=== PATIENT | female | born 1945 | race Hispanic/Latino ===

== ENCOUNTER 2017-06-30 13:39 | Emergency (ER) | payer OTHER ==
[~2017-06-30] VITALS: Ht 152.4 cm; Wt 60.3 kg
[2017-06-30] MEDS ORDERED: ASPIRIN 81 MG CHEW TAB PO ONE (14:15)
[2017-06-30 14:50] LABS: BASOPHILS % 0.4 % (0.0-1.0); EOSINOPHILS # (AUTO) 0.1 (0.0-0.4); EOSINOPHILS % 0.9 % (0.0-6.0); HEMATOCRIT 42.7 % (34.2-44.1); HEMOGLOBIN 14.2 g/dL (12.0-16.0); LYMPHOCYTES # (AUTO) 1.9 (1.0-3.2); LYMPHOCYTES % 34.1 % (18.0-39.1); MEAN CORPUSCULAR HGB CONC 33.3 g/dL (31-35); MEAN CORPUSCULAR VOLUME 90.3 fL (81-99); MONOCYTES # (AUTO) 0.2 (0.2-0.8); MONOCYTES % 3.7 % (4.4-11.3); NEUTROPHILS # (AUTO) 3.4 (2.1-6.9); NEUTROPHILS % 60.4 % (38.7-80.0); PLATELET COUNT 143 x10e3/uL (140-360); RED BLOOD COUNT 4.73 x10e6/uL (3.6-5.1); RED CELL DISTRIBUTION WIDTH 13.5 % (11.7-14.4)
[2017-06-30 14:55] LABS: INR 1.06; PARTIAL THROMBOPLASTIN TIME 23.4 seconds (23.8-35.5)
[2017-06-30 15:05] LABS: ALANINE AMINOTRANSFERASE 21 IU/L (0-55); ALBUMIN 4.1 g/dL (3.5-5.0); ALBUMIN/GLOBULIN RATIO 1.3 (0.8-2.0); ALKALINE PHOSPHATASE 95 IU/L (40-150); ANION GAP 13.7 mmol/L (8-16); BLOOD UREA NITROGEN 11 mg/dL (7-26); BUN/CREATININE RATIO 16 (6-25); CALCIUM 8.6 mg/dL (8.4-10.2); CARBON DIOXIDE 25 mmol/L (22-29); CHLORIDE 106 mmol/L (98-107); CREATINE KINASE 93 IU/L (29-168); CREATININE, SERUM 0.68 mg/dL (0.57-1.11); EST GLOMERULAR FILTRATION RATE > 60 ML/MIN (60-); GLUCOSE 118 mg/dL (74-118); MAGNESIUM 2.1 MG/DL (1.3-2.1); POTASSIUM 3.7 mmol/L (3.5-5.1); SODIUM 141 mmol/L (136-145)
--- NOTE | 2017-06-30 15:06 | Diagnostic Imaging Report ---
EXAM: XR CHEST 1 VIEW DATE: 06/30/2017 2:03 PM INDICATION: Dizziness COMPARISON: None FINDINGS: Lines and Tubes: None Heart and Mediastinum: No acute findings. Lungs and Pleura: No acute findings. Bones and Soft Tissues: No acute findings. IMPRESSION: 1. No acute cardiopulmonary findings. Signed by: Dr. Yaya Musa MD on 06/30/2017 3:02 PM
--- NOTE | 2017-06-30 15:25 | Diagnostic Imaging Report ---
Examination: CT BRAIN WITHOUT CONTRAST History: Light headed; dizziness; numbness. Comparison studies:None Technique: Axial images were obtained from the skull base to the vertex. Coronal and sagittal images reconstructed from the axial data. Intravenous contrast: None Findings: Scalp: No abnormalities. Bones: No fractures, blastic or lytic lesions. Brain sulci: Appropriate for age. Ventricles: Normal in size and configuration. No hydrocephalus. Extra-axial space: No abnormalities. Parenchyma: A 5mm calcification in the right caudate head the sequelae of prior infectious or inflammatory. No masses, hemorrhage, or acute or chronic cortical based vascular insults.. Sellar/suprasellar region: No abnormalities. Craniocervical junction: Patent foramen magnum. No Chiari one malformation. Incidental findings: None. Impression: No acute intracranial abnormalities. Signed by: Dr. Kalpana Kurtz M.D. on 06/30/2017 3:22 PM
== END 2017-06-30 20:41 | disposition home or self-care (01) ==
LOC: ER 13:39
DX: R42 Dizziness and giddiness (principal)
CPT/HCPCS: 36415; 70450; 71045; 80053; 82550; 82553; 83735; 83880; 84484; 85025; 85610; 85730; 93005; 99283

== ENCOUNTER 2019-09-24 05:00 | Emergency (ER) | payer OTHER ==
[~2019-09-24] VITALS: Ht 152.4 cm; Wt 58.1 kg
--- OUTSIDE RECORDS SUMMARY | 2019-09-24 05:03 | XMS REPORT ---
Author Author [facility] t Organization [facility] t Address [address] [place] [address] Phone Unavailable Care Team Providers Care Beater Room Supervisor Name Role Phone NONSTAFF PCP Unavailable Sakina DURANT Attphys Unavailable Payers Payer Name Policy Type Policy Number Effective Date Expiration Date Kyle Handy [id number] 2017 00:00:00 [facility] Problems This patient has no known problems. Allergies, Adverse Reactions, Alerts Allergy Name Allergy Type Status Severity Reaction(s) Onset Date Inacti ve Date Treating Clinician Comments Source PENICILLIN Allergy to Substance Active Unknown 2017-06-30 00:00:00 [facility] Medications This patient has no known medications. Procedures Procedure Date / Time Performed Performing Clinician Sour e Computed tomography of brain without radiopaque contrast 201 12-07-23 00:00:00 TONI GARCIA [facility] Encounters Start Date/Time End Date/Time Encounter Type Admission Type Attendi [facility] Care Department Encounter ID Source 2017-06-30 13:39:00 2017-06-30 20:41:00 Departed Emergency Room ER NAMITA DURANT [facility] [id number] [facility] Results Test Description Test Time Test Comments Results Result Comments Source Troponin I 2017-06-30 17:57:00 Test Item Troponin I (test code = HVA9521) 0.008 0-0.300 [facility]Creatine Kinase [id number] 15:19:00* Test Item Value Reference Range Interpretation Comments Creatine Kinase MB (test code = 09613-4) 1.20 0-5.0 [facility]B-Type Natriuretic [id number] 15:16:00* Test Item Value Reference Range Interpretation Comments B-Type Natriuretic Peptide (test code = 32078-5) 58.3 0-100 [facility] Ilzth8802-10-92 15:06:00* Test Item Value Reference Range Interpretation Comments Sodium Level (test code = 2951-2) 141 136-145 [facility]Potassium [id number] 15:06:00* Test Item Value Reference Range Interpretation Comments Potassium Level (test code = 2823-3) 3.7 3.5-5.1 [facility]Chloride [id number] 15:06:00* Test Item Value Reference Range Interpretation Comments Chloride Level (test code = 2075-0) 106 98-107 [facility]Carbon Dioxide [id number] 15:06:00* Test Item Value Reference Range Interpretation Comments Carbon Dioxide Level (test code = 2028-9) 25 22-29 [facility]Anion [id number] 15:06:00* Test Item Value Reference Range Interpretation Comments Anion Gap (test code = 19769-2) 13.7 8-16 [facility]Blood Urea [id number] 15:06:00* Test Item Value Reference Range Interpretation Comments Blood Urea Nitrogen (test code = 3094-0) 11 7-26 [facility]Creatinine2018-02-24 15:06:00* Test Item Value Reference Range Interpretation Comments Creatinine (test code = 2160-0) 0.68 0.57-1.11 [facility]BUN/Creatinine Xmvxp1179-10-81 15:06:00* Test Item Value Reference Range Interpretation Comments BUN/Creatinine Ratio (test code = 3097-3) 16 6-25 [facility]Estimat Glomerular Filtration Rate 2017-06-30 15:06:00* Test Item Value Reference Range Interpretation Comments Estimat Glomerular Filtration Rate (test code = 75627-8) 60- >60 Ranges were taken from the National Kidney Disease Education Program and the [facility] literature.Reference ranges:60 or greater: Grlkor97-03 ( for 3 consecutive months): Chronic kidney disease 15 or less: Kidney failureBaylor Scott & White Medical Center – PflugervilleGlucose Csokt4254-52-43 15:06:00* Test Item Value Reference Range Interpretation Comments Glucose Level (test code = SUA5687) 118 74-118 [facility]Calcium Hddgq6460-21-27 15:06:00* Test Item Value Reference Range Interpretation Comments Calcium Level (test code = 25623-9) 8.6 8.4-10.2 [facility]ervilleMagnesium [id number] 15:06:00* Test Item Value Reference Range Interpretation Comments Magnesium Level (test code = 12658-9) 2.1 1.3-2.1 [facility]ervilleTotal Ywukbmcuc8728-92-76 15:06:00* Test Item Value Reference Range Interpretation Comments Total Bilirubin (test code = 1975-2) 0.8 0.2-1.2 [facility]ervilleAspartate Amino Transf (AST/SGOT) 2017-06-30 15:06:00* Test Item Value Reference Range Interpretation Comments Aspartate Amino Transf (AST/SGOT) (test code = Aspartate Amino Transf (AST/SGOT)) 22 5-34 [facility]Alanine Aminotransferase (ALT/SGPT) 2017-06-30 15:06:00* Test Item Value Reference Range Interpretation Comments Alanine Aminotransferase (ALT/SGPT) (test code = 1742-6) 21 0-55 [facility]ervilleTotal Nezhksm2220-66-47 15:06:00* Test Item Value Reference Range Interpretation Comments Total Protein (test code = 2885-2) 7.2 6.5-8.1 [facility]ervilleAlbumin2018-02-24 15:06:00* Test Item Value Reference Range Interpretation Comments Albumin (test code = 1751-7) 4.1 3.5-5.0 [facility]Globulin2018-02-24 15:06:00* Test Item Value Reference Range Interpretation Comments Globulin (test code = 37043-2) 3.1 2.3-3.5 [facility]ervilleAlbumin/Globulin Zmdxm5603-08-85 15:06:00 * Test Item Value Reference Range Interpretation Comments Albumin/Globulin Ratio (test code = 1759-0) 1.3 0.8-2.0 [facility]Alkaline Irxxgcxhqrb3548-25-87 15:06:00* Test Item Value Reference Range Interpretation Comments Alkaline Phosphatase (test code = 6768-6) 95 40-150 [facility]ervilleCreatine Bnxhlw1393-96-17 15:06:00* Test Item Value Reference Range Interpretation Comments Creatine Kinase (test code = 2157-6) 93 29-168 [facility]ervilleActivated Partial Thromboplast Time 2017-06-30 14:59:00* Test Item Value Reference Range Interpretation Comments Activated Partial Thromboplast Time (test code = 82489-6) 23.4 23.8-35.5 [facility]ervilleProthrombin Veob3450-11-08 14:55:00* Test Item Value Reference Range Interpretation Comments Prothrombin Time (test code = 5902-2) 13.0 11.9-14.5 [facility]Prothromb Time International Ratio 2017-06-30 14:55:00* Test Item Value Reference Range Interpretation Comments Prothromb Time International Ratio (test code = 6301-6) 1.06 Oral Anticoagulant Therapy INR Values:1. Low Intensity Therapy 1.5 - 2.02 . Moderate Intensity Therapy 2.0 - 3.03. High Intensity Therapy(1) 2.5 - 3. 54. High Intensity Therapy(2) 3.0 - 4.05. Panic Value INR > 5.0 [facility]ervilleWhite Blood Qofxy1616-65-36 14:53:00* Test Item Value Reference Range Interpretation Comments White Blood Count (test code = 6690-2) 5.69 4.8-10.8 [facility]ervilleRed Blood Apfiy2259-60-41 14:53:00* Test Item Value Reference Range Interpretation Comments Red Blood Count (test code = 789-8) 4.73 3.6-5.1 [facility]Hemoglobin2018-02-24 14:53:00* Test Item Value Reference Range Interpretation Comments Hemoglobin (test code = 19922-5) 14.2 12.0-16.0 [facility]ervilleHematocrit2018-02-24 14:53:00* Test Item Value Reference Range Interpretation Comments Hematocrit (test code = 4544-3) 42.7 34.2-44.1 [facility]ervilleMean Corpuscular Vbnlcd4731-21-47 14:53:00* Test Item Value Reference Range Interpretation Comments Mean Corpuscular Volume (test code = 787-2) 90.3 81-99 [facility]ervilleMean Corpuscular Vlvcptvaot9553-29-80 14:53:00* Test Item Value Reference Range Interpretation Comments Mean Corpuscular Hemoglobin (test code = 785-6) 30.0 28-32 [facility]ervilleMean Corpuscular Hemoglobin Concent 2017-06-30 14:53:00* Test Item Value Reference Range Interpretation Comments Mean Corpuscular Hemoglobin Concent (test code = 786-4) 33.3 31-35 [facility]ervilleRed Cell Distribution Krdsg8223-26-37 14:53:00* Test Item Value Reference Range Interpretation Comments Red Cell Distribution Width (test code = 71213-6) 13.5 11.7 -14.4 [facility]ervillePlatelet Bpdtz8095-89-25 14:53:00* Test Item Value Reference Range Interpretation Comments Platelet Count (test code = 777-3) 143 140-360 [facility]ervilleNeutrophils (%) (Auto)2017-06-30 14:53:00 * Test Item Value Reference Range Interpretation Comments Neutrophils (%) (Auto) (test code = 43158-5) 60.4 38.7-80.0 [facility]ervilleLymphocytes (%) (Auto)2017-06-30 14:53:00 * Test Item Value Reference Range Interpretation Comments Lymphocytes (%) (Auto) (test code = 736-9) 34.1 18.0-39.1 [facility]ervilleMonocytes (%) (Auto)2017-06-30 14:53:00* Test Item Value Reference Range Interpretation Comments Monocytes (%) (Auto) (test code = 5905-5) 3.7 4.4-11.3 [facility]Eosinophils (%) (Auto)2017-06-30 14:53:00 * Test Item Value Reference Range Interpretation Comments Eosinophils (%) (Auto) (test code = 713-8) 0.9 0.0-6.0 [facility]Basophils (%) (Auto)2017-06-30 14:53:00* Test Item Value Reference Range Interpretation Comments Basophils (%) (Auto) (test code = 706-2) 0.4 0.0-1.0 [facility]ervilleIM GRANULOCYTES %2017-06-30 14:53:00* Test Item Value Reference Range Interpretation Comments IM GRANULOCYTES % (test code = IM GRANULOCYTES %) 0.5 0.0- 1.0 [facility]ervilleNeutrophils # (Auto)2017-06-30 14:53:00* Test Item Value Reference Range Interpretation Comments Neutrophils # (Auto) (test code = 751-8) 3.4 2.1-6.9 [facility]ervilleLymphocytes # (Auto)2017-06-30 14:53:00* Test Item Value Reference Range Interpretation Comments Lymphocytes # (Auto) (test code = 18263-1) 1.9 1.0-3.2 [facility]ervilleMonocytes # (Auto)2017-06-30 14:53:00* Test Item Value Reference Range Interpretation Comments Monocytes # (Auto) (test code = 742-7) 0.2 0.2-0.8 [facility]Eosinophils # (Auto)2017-06-30 14:53:00* Test Item Value Reference Range Interpretation Comments Eosinophils # (Auto) (test code = 711-2) 0.1 0.0-0.4 [facility]Basophils # (Auto)2017-06-30 14:53:00* Test Item Value Reference Range Interpretation Comments Basophils # (Auto) (test code = 704-7) 0.0 0.0-0.1 [facility] PflugervilleAbsolute Immature Granulocyte (auto 2017-06-30 14:53:00* Test Item Value Reference Range Interpretation Comments Absolute Immature Granulocyte (auto (maria g t code = Absolute Immature Granulocyte (auto) 0.03 0-0.1 [facility] PflugervilleCHEST SINGLE (PORTABLE) [facility] [address] [place] [address] Patient Name: MIHAI ISAAC MR #: [id number] : 1945 Age/Sex: 72/F Req #: [id number] Adm Physician: Ordered by: TONI GARCIA PAINTER [employer]ILRO[employer] CAR Report #: [id number] Location: ER Room/Bed: Procedure: [id number] DX/CHEST SINGLE (PORTABLE) Exam Date: 06/30/17 Exam Time: 1450 REPORT STA TUS: Signed EXAM: XR CHEST 1 VIEW DATE: 06/30/2017 2:03 PM INDICATIO N: Dizziness COMPARISON: None FINDINGS: Lines and Tubes: None Heart and Mediastinum: No acute findings. Lungs and Pleura: No acute fin dings. Bones and Soft Tissues: No acute findings. IMPRESSION: 1. N o acute cardiopulmonary findings. Signed by: Dr. Marian Musa MD on 018 3:02 PM Dictated By: MARIAN MUSA MD 1502 Transcribed By: LAURIE on 06/30/17 1502 COPY TO: TONI GARCIA PAINTER RAILROAD CAR CT BRAIN WO [place] [address] Patient Name: MIHAI ISAAC MR #: [id number] : 1945 Age/Sex: 72/F Req #: [id number] Adm Physician: Ordered by: TONI GARCIA [employer]INTER [employer] Report #: [id number] Location: ER Room/Bed: Procedure: [id number] CT/CT BRAIN WO Exam Date: 06/30/17 Exam Time: 1445 REPORT STATUS: Signed Examination: CT BRAIN WITHOUT CONTRAST History: Light headed; dizziness; numbness. Comparison studies:None Technique: Axial images were obtain ed from the skull base to the vertex. Coronal and sagittal images reconstructe d from the axial data. Intravenous contrast: None Findings: Scalp: N o abnormalities. Bones: No fractures, blastic or lytic lesions. Brain sul ci: Appropriate for age. Ventricles: Normal in size and configuration. No hydr ocephalus. Extra-axial space: No abnormalities. Parenchyma: A 5mm calcification in the right caudate head the sequelae of prior infectious or i nflammatory. No masses, hemorrhage, or acute or chronic cortical based vascul ar insults.. Sellar/suprasellar region: No abnormalities. Craniocervical junction: Patent foramen magnum. No Chiari one malformation. Incidental fin dings: None. Impression: No acute intracranial abnormalities. Signed by: Dr. Kalpana Kurtz M.D. on 06/30/2017 3:22 PM Dictated By: KALPANA GARCIA MD 1522 Transcribed By: LAURIE on 06/30/17 1522 COPY TO: TONI DAMON NP
--- NOTE | 2019-09-24 06:00 | Emergency Department Note ---
History of Present Illnes History of Present Illness Chief Complaint: Abdominal Complaints History of Present Illness This is a 74 year old female arrived to the ED for RUQ abdominal pain. Chief Complaint Comment 74 Y/O FEMALE PT A&OX3 PRESENTS TO THE ER C/O RUQ ABD PAIN THAT RADIATES TO BACK ONSET THIS AM AT APPROX 0000; PT REPORTS NAUSEA D/T PAIN; PT DENIES FEVER/CHILLS, VOMITING OR DIARRHEA; PT ALSO REPORTS URINARY FREQUENCY WITH LITTLE URINE OUTPUT ONSET AT 0000; PT DENIES CP OR SOB; RESP EVEN/UNLABORED; SKIN WNL FOR PT; V/S/S DURING TRIAGE; NAD NOTED AT THIS TIME; PT GIVEN SPECIMEN CUP FOR URINE SAMPLE. 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 Any updates have been documented here. 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 Past Surgical History: Appendectomy, Hysterectomy (ARMIN OCONNOR DO) Social History Smoking Cessation: Never Smoker Alcohol Use: None Any Illegal Drug Use: No TB Exposure/Symptoms: No Physically hurt or threatened: No (ARMIN OCONNOR DO) Family History Family history of heart diseas: Yes (ARMIN OCONNOR DO) Other Last Tetanus: UNK Any Pre-Existing Lines (PICC,: No Is patient up to date on immun: Yes Last Flu: UTD Last Pneumovax: UNK (ARMIN OCONNOR DO) Review of Systems Review of Systems Constitutional: no symptoms EENTM: no symptoms Cardiovascular: no symptoms Respiratory: no symptoms Gastrointestinal: abdominal pain Genitourinary: no symptoms Musculoskeletal: no symptoms Neurological: no symptoms Psychological: no symptoms Endocrine: no symptoms Hematological/Lymphatic: no symptoms Review of other systems All other systems reviewed and negative. (ARMIN OCONNOR DO) Physical Exam Related Data Allergies: Uncoded Allergies: PENICILLIN (Allergy, Intermediate, RASH, 09/24/19) Triage Vital Signs Vital Signs Date Time Temp Pulse Resp B/P (MAP) Pulse Ox O2 Delivery O2 Flow Rate FiO2 09/24/19 05:08 98.6 79 18 164/88 100 Vital signs reviewed: Yes (ARMIN OCONNOR, ) Physical Exam CONSTITUTIONAL Constitutional: well-developed, well-nourished HENT HENT: normocephalic, atraumatic, oropharynx clear/moist, nose normal HENT L/R: left ext ear normal, right ext ear normal EYES Eyes: PERRL, conjunctivae normal NECK Neck: ROM normal PULMONARY Pulmonary: effort normal, breath sounds normal CARDIOVASCULAR Cardiovascular: regular rhythm, heart sounds normal, capillary refill normal, normal rate GASTROINTESTINAL Abdominal: soft, bowel sounds normal, other (RUQ tenderness) GENITOURINARY Genitourinary: exam deferred SKIN Skin: warm, dry MUSCULOSKELETAL Musculoskeletal: ROM normal NEUROLOGICAL Neurological: alert, oriented x 3, no gross motor or sensory deficits PSYCHOLOGICAL Psychological: mood/affect normal, judgement normal (ARMIN OCONNOR, ) Results Laboratory Lab results reviewed: Yes Laboratory comments Laboratory Tests Test 09/24/19 05:17 White Blood Count 8.94 x10e3/uL (4.8-10.8) Red Blood Count 4.99 x10e6/uL (3.6-5.1) Hemoglobin 14.3 g/dL (12.0-16.0) Hematocrit 45.4 % (34.2-44.1) Mean Corpuscular Volume 91.0 fL (81-99) Mean Corpuscular Hemoglobin 28.7 pg (28-32) Mean Corpuscular Hemoglobin Concent 31.5 g/dL (31-35) Red Cell Distribution Width 13.6 % (11.7-14.4) Platelet Count 149 x10e3/uL (140-360) Neutrophils (%) (Auto) 80.5 % (38.7-80.0) Lymphocytes (%) (Auto) 15.9 % (18.0-39.1) Monocytes (%) (Auto) 2.7 % (4.4-11.3) Eosinophils (%) (Auto) 0.3 % (0.0-6.0) Basophils (%) (Auto) 0.2 % (0.0-1.0) Neutrophils # (Auto) 7.2 (2.1-6.9) Lymphocytes # (Auto) 1.4 (1.0-3.2) Monocytes # (Auto) 0.2 (0.2-0.8) Eosinophils # (Auto) 0.0 (0.0-0.4) Basophils # (Auto) 0.0 (0.0-0.1) Absolute Immature Granulocyte (auto 0.04 x10e3/uL (0-0.1) Urine Color Yellow (YELLOW) Urine Clarity Clear (CLEAR) Urine pH 6 (5 - 7) Urine Specific [place] >=1.030 (1.010-1.025) Urine Protein Negative (NEGATIVE) Urine Glucose (UA) Negative (NEGATIVE) Urine Ketones Negative (NEGATIVE) Urine Blood Trace (NEGATIVE) Urine Nitrite Negative (NEGATIVE) Urine Bilirubin Negative (NEGATIVE) Urine Urobilinogen 0.2 mg/dL (0.2 - 1) Urine Leukocyte Esterase Trace (NEGATIVE) Urine RBC 0-5 /HPF (0-5) Urine WBC 0-5 /HPF (0-5) Urine Epithelial Cells Rare /LPF (NONE) Urine Bacteria Few /HPF (NONE) Sodium Level 141 mmol/L (136-145) Potassium Level 3.8 mmol/L (3.5-5.1) Chloride Level 105 mmol/L (98-107) Carbon Dioxide Level 23 mmol/L (22-29) Anion Gap 16.8 mmol/L (8-16) Blood Urea Nitrogen 12 mg/dL (7-26) Creatinine 0.73 mg/dL (0.57-1.11) Estimat Glomerular Filtration Rate > 60 ML/MIN (60-) BUN/Creatinine Ratio 16 (6-25) Glucose Level 149 mg/dL (74-118) Calcium Level 9.5 mg/dL (8.4-10.2) Total Bilirubin 0.5 mg/dL (0.2-1.2) Aspartate Amino Transf (AST/SGOT) 18 IU/L (5-34) Alanine Aminotransferase (ALT/SGPT) 22 IU/L (0-55) Alkaline Phosphatase 102 IU/L (40-150) Creatine Kinase 73 IU/L (29-168) Creatine Kinase MB 1.40 ng/mL (0-5.0) Troponin I < 0.001 ng/mL (0-0.300) Total Protein 7.2 g/dL (6.5-8.1) Albumin 4.0 g/dL (3.5-5.0) Globulin 3.2 g/dL (2.3-3.5) Albumin/Globulin Ratio 1.3 (0.8-2.0) (ARMIN OCONNOR, ) Lab results reviewed: Yes (ROBERT GE MD) Imaging Imaging results reviewed: Yes Impressions Procedure: CT/CT ABDOMEN/PELVIS W Exam Date: 09/24/19 Exam Time: 0700 REPORT STATUS: Signed TECHNIQUE: CT of the abdomen and pelvis WITH intravenous contrast and WITHOUT oral contrast. Dose modulation, iterative reconstruction, and/or weight-based adjustment of the mA/kV was utilized to reduce the radiation dose to as low as reasonably achievable. INDICATION: 74-year-old woman with right upper quadrant pain. COMPARISON: None. FINDINGS: LOWER THORAX: Unremarkable. HEPATOBILIARY: Subcentimeter hypodensity in the inferior right hepatic lobe is too small to characterize, but is likely a cyst. Questionable mild pericholecystic edema. Gallbladder is otherwise unremarkable. No biliary ductal dilatation. SPLEEN: No splenomegaly. PANCREAS: Atrophic pancreatic body and tail. No focal masses or ductal dilatation. ADRENALS: No adrenal nodules. KIDNEYS/URETERS: No hydronephrosis, stones, or solid mass lesions. PELVIC ORGANS/BLADDER: Bladder is underdistended. Prior hysterectomy. No adnexal mass. PERITONEUM/RETROPERITONEUM: No free air or fluid. LYMPH NODES: No lymphadenopathy. VESSELS: Atherosclerotic vascular calcifications in the abdominal aorta and bilateral iliac arteries without aneurysm. GI TRACT: No distention or wall thickening. Colonic diverticula, predominantly in the sigmoid. BONES AND SOFT TISSUES: Osteopenia. Degenerative changes of the visualized spine. 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 Soft tissues are unremarkable. IMPRESSION: Questionable mild pericholecystic edema. In the setting of right upper quadrant pain, acute cholecystitis cannot be excluded. RECOMMENDATION: Right upper quadrant ultrasound may be obtained for further evaluation. 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 (ARMIN OCONNOR DO) Assessment & Plan Reassessment Reassessment I assumed care of patient, reviewed labs, still await CT A/P results from ra diologist. I saw and examined pt - her pain is much improved, states almost completely gone. Abd- soft, ND, very minimal tenderness RUQ without R/G, NABS (ROBERT GE MD) Assessment & Plan Final Impression: (1) Abdominal pain Assessment & Plan CBC, CMP, LIPASE CXR, EKG CT AP (ARMIN OCONNOR DO) Assessment & Plan discharge Bentyl 20 mg po q6hr prn Zofran ODT Isabella diet F/U PCP tomorrow (ROBERT GE MD) Depart Disposition: HOME, SELF-CARE Last Vital Signs Date Time Temp Pulse Resp B/P (MAP) Pulse Ox O2 Delivery O2 Flow Rate FiO2 09/24/19 05:08 98.6 79 18 164/88 100 (ARMIN OCONNOR DO) Physician Attestation Provider Attestation Pt discussed with Dr. Ge, sarah f/u CT AP and dispo (ARMIN OCONNOR DO) ARMIN OCONNOR DO September 24, 2019 06:00 ROBERT GE MD September 24, 2019 08:22
[2019-09-24 06:04] LABS: BASOPHILS % 0.2 % (0.0-1.0); EOSINOPHILS % 0.3 % (0.0-6.0); HEMATOCRIT 45.4 % (34.2-44.1); HEMOGLOBIN 14.3 g/dL (12.0-16.0); LYMPHOCYTES # (AUTO) 1.4 (1.0-3.2); LYMPHOCYTES % 15.9 % (18.0-39.1); MEAN CORPUSCULAR HEMOGLOBIN 28.7 pg (28-32); MEAN CORPUSCULAR HGB CONC 31.5 g/dL (31-35); MONOCYTES # (AUTO) 0.2 (0.2-0.8); MONOCYTES % 2.7 % (4.4-11.3); NEUTROPHILS # (AUTO) 7.2 (2.1-6.9); NEUTROPHILS % 80.5 % (38.7-80.0); PLATELET COUNT 149 x10e3/uL (140-360); RED BLOOD COUNT 4.99 x10e6/uL (3.6-5.1); RED CELL DISTRIBUTION WIDTH 13.6 % (11.7-14.4)
[2019-09-24 06:06] LABS: BILIRUBIN,URINE NEGATIVE (NEGATIVE); CLARITY,URINE CLEAR (CLEAR); COLOR,URINE YELLOW (YELLOW); KETONES,URINE NEGATIVE (NEGATIVE); LEUKOCYTE ESTERASE ,URINE TRACE (NEGATIVE); NITRITE,URINE NEGATIVE (NEGATIVE); PROTEIN,URINE DIPSTICK NEGATIVE (NEGATIVE); URINE UROBILINOGEN 0.2 mg/dL (0.2 - 1)
[2019-09-24 06:20] LABS: BACTERIA,URINE FEW /HPF; EPITHELIAL CELLS,URINE RARE /LPF; RBC,URINE 0-5 /HPF (0-5); WBC,URINE (MAN) 0-5 /HPF (0-5)
[2019-09-24 06:29] LABS: ALANINE AMINOTRANSFERASE 22 IU/L (0-55); ALBUMIN/GLOBULIN RATIO 1.3 (0.8-2.0); ALKALINE PHOSPHATASE 102 IU/L (40-150); ANION GAP 16.8 mmol/L (8-16); BLOOD UREA NITROGEN 12 mg/dL (7-26); BUN/CREATININE RATIO 16 (6-25); CALCIUM 9.5 mg/dL (8.4-10.2); CARBON DIOXIDE 23 mmol/L (22-29); CHLORIDE 105 mmol/L (98-107); CREATINE KINASE 73 IU/L (29-168); CREATININE, SERUM 0.73 mg/dL (0.57-1.11); EST GLOMERULAR FILTRATION RATE > 60 ML/MIN (60-); GLUCOSE 149 mg/dL (74-118); POTASSIUM 3.8 mmol/L (3.5-5.1); SODIUM 141 mmol/L (136-145)
[2019-09-24] MEDS ORDERED: SODIUM CHLORIDE 0.9% 50ML 50 ML ONE (06:59)
[2019-09-24] MEDS ORDERED: IOPAMIDOL 370 MG/ML 200 ML INFUS..BTL INJ ONE (06:59)
--- NOTE | 2019-09-24 08:52 | Diagnostic Imaging Report ---
TECHNIQUE: CT of the abdomen and pelvis WITH intravenous contrast and WITHOUT oral contrast. Dose modulation, iterative reconstruction, and/or weight-based adjustment of the mA/kV was utilized to reduce the radiation dose to as low as reasonably achievable. INDICATION: 74-year-old woman with right upper quadrant pain. COMPARISON: None. FINDINGS: LOWER THORAX: Unremarkable. HEPATOBILIARY: Subcentimeter hypodensity in the inferior right hepatic lobe is too small to characterize, but is likely a cyst. Questionable mild pericholecystic edema. Gallbladder is otherwise unremarkable. No biliary ductal dilatation. SPLEEN: No splenomegaly. PANCREAS: Atrophic pancreatic body and tail. No focal masses or ductal dilatation. ADRENALS: No adrenal nodules. KIDNEYS/URETERS: No hydronephrosis, stones, or solid mass lesions. PELVIC ORGANS/BLADDER: Bladder is underdistended. Prior hysterectomy. No adnexal mass. PERITONEUM/RETROPERITONEUM: No free air or fluid. LYMPH NODES: No lymphadenopathy. VESSELS: Atherosclerotic vascular calcifications in the abdominal aorta and bilateral iliac arteries without aneurysm. GI TRACT: No distention or wall thickening. Colonic diverticula, predominantly in the sigmoid. BONES AND SOFT TISSUES: Osteopenia. Degenerative changes of the visualized spine. 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 Soft tissues are unremarkable. IMPRESSION: Questionable mild pericholecystic edema. In the setting of right upper quadrant pain, acute cholecystitis cannot be excluded. RECOMMENDATION: Right upper quadrant ultrasound may be obtained for further evaluation. Signed by: Walt Pastor MD on 09/24/2019 8:49 AM
[2019-09-24] MEDS ORDERED: DICYCLOMINE HCL20 MG PO (09:01)
[2019-09-24] MEDS ORDERED: ZOFRAN4 MG SL (09:01)
== END 2019-09-24 09:22 | disposition home or self-care (01) ==
LOC: ER 05:00
DX: R10.11 Right upper quadrant pain (principal); R11.0 Nausea; E78.5 Hyperlipidemia, unspecified; E03.9 Hypothyroidism, unspecified; K86.9 Disease of pancreas, unspecified; H91.8X1 Other specified hearing loss, right ear
CPT/HCPCS: 36415; 74177; 80053; 81001; 82550; 82553; 83690; 84484; 85025; 93005; 99283; Q9967